=== PATIENT | female | born 1990 | race American Indian/Alaskan Native ===

== ENCOUNTER → 2018-12-08 | Outpatient (CLI) | payer OTHER ==
[2018-12-08 13:13] LABS: HEMATOCRIT 38.4 % (36.0-47.0); MEAN CORPUSCULAR HEMOGLOBIN 26.3 pg (27.0-33.0); MEAN CORPUSCULAR HGB CONC 31.3 g/dl (32.0-36.5); PLATELET COUNT, AUTOMATED 303 10^3/uL (150-450); RED BLOOD COUNT 4.57 10^6/uL (4.00-5.40); WHITE BLOOD COUNT 6.4 10^3/uL (4.0-10.0)
[2018-12-08 13:50] LABS: ALBUMIN 3.6 GM/DL (3.2-5.2); ALT/SGPT 20 U/L (12-78); BILIRUBIN,TOTAL 0.3 MG/DL (0.2-1.0); BLOOD UREA NITROGEN 7 MG/DL (7-18); CALCIUM LEVEL 8.7 MG/DL (8.5-10.1); CARBON DIOXIDE LEVEL 31 MEQ/L (21-32); CHLORIDE LEVEL 106 MEQ/L (98-107); CREATININE FOR GFR 0.76 MG/DL (0.55-1.30); GLOMERULAR FILTRATION RATE > 60.0 (>60); GLUCOSE, FASTING 75 MG/DL (70-100); HCG, SERUM QUANTITATIVE 2 MIU/ML; POTASSIUM SERUM 3.9 MEQ/L (3.5-5.1); SODIUM LEVEL 142 MEQ/L (136-145); TOTAL PROTEIN 6.3 GM/DL (6.4-8.2)
[2018-12-08 14:17] LABS: HEPATITIS B SURFACE ANTIGEN NEGATIVE (NEGATIVE)
[2018-12-08 14:40] LABS: CHLAMYDIA DNA AMPLIFICATION NEGATIVE (NEGATIVE); GC DNA AMPLIFICATION NEGATIVE (NEGATIVE)
--- NOTE | 2018-12-08 15:07 | ECGEPIP ---
[facility] Test Date: 2018-12-08 Pat Name: REYNALDO ADRIAN Department: Room: - Gender: Female [employer]: INDIRA : 1990 Requested By: Cosme Jorgensen Order Number: [id number] Reading MD: Zachariah Haley Measurements Intervals Howe Rate: 59 P: 63 RI: 129 QRS: 58 QRSD: 77 T: -10 QT: 418 QTc: 416 Interpretive Statements SINUS BRADYCARDIA MODERATE T-WAVE ABNORMALITY, CONSIDER ANTERIOR ISCHEMIA No prior ECG available for comparison at the time of interpretation. Electronically Signed on 12-08-2018 15:07:09 EDT by Zachariah Haley
[2018-12-08 16:47] LABS: HIV 1&2 SCREEN CENTAUR NEGATIVE (NEGATIVE)
== END ==
LOC: M LAB 12:23
PROVIDERS: ATTEND Family Medicine
DX: F11.20 Opioid dependence, uncomplicated (principal)

== ENCOUNTER → 2019-03-11 | Outpatient (REF) | payer OTHER, MEDICAID ==
[2019-03-11 19:31] LABS: BASO % 0.3 % (0.0-1.0); EOS # 0.1 10^3/uL (0.0-0.5); HEMATOCRIT 43.6 % (36.0-47.0); HEMOGLOBIN 13.3 g/dl (12.0-15.5); LYMPH # 2.7 10^3/uL (1.5-5.0); LYMPH % 29.6 % (24.0-44.0); MEAN CORPUSCULAR HEMOGLOBIN 26.1 pg (27.0-33.0); MEAN CORPUSCULAR HGB CONC 30.5 g/dl (32.0-36.5); MEAN CORPUSCULAR VOLUME 85.5 fl (80.0-96.0); MONO # 0.9 10^3/uL (0.0-0.8); MONO % 9.7 % (0.0-5.0); NEUTROPHILS # 5.4 10^3/uL (1.5-8.5); NEUTROPHILS % 59.2 % (36.0-66.0); PLATELET COUNT, AUTOMATED 262 10^3/uL (150-450); WHITE BLOOD COUNT 9.2 10^3/uL (4.0-10.0)
[2019-03-11 19:38] LABS: ALBUMIN 4.3 GM/DL (3.2-5.2); ALT/SGPT 17 U/L (12-78); BILIRUBIN,TOTAL 0.2 MG/DL (0.2-1.0); BLOOD UREA NITROGEN 13 MG/DL (7-18); CALCIUM LEVEL 8.7 MG/DL (8.5-10.1); CARBON DIOXIDE LEVEL 29 MEQ/L (21-32); CHLORIDE LEVEL 105 MEQ/L (98-107); CHOLESTEROL LEVEL 154 MG/DL (<200); CREATININE FOR GFR 0.79 MG/DL (0.55-1.30); FERRITIN 51 NG/ML (8-252); FREE T4 1.02 NG/DL (0.76-1.46); GLOMERULAR FILTRATION RATE > 60.0 (>60); GLUCOSE, FASTING 79 MG/DL (70-100); HDL CHOLESTEROL 70 MG/DL (>40); IRON (FE) 53 UG/DL (50-170); LDL CHOLESTEROL 74 MG/DL (<100); NON-HDL-C 84 MG/DL; PERCENT SATURATION 13.9 % (13.2-45.0); POTASSIUM SERUM 4.1 MEQ/L (3.5-5.1); SODIUM LEVEL 139 MEQ/L (136-145); THYROID STIMULATING HORMONE 0.768 uIU/ML (0.358-3.740); TOTAL 25(OH) VITAMIN D 20.8 NG/ML (30.0-100.0); TOTAL IRON BINDING CAPACITY 381 UG/DL (250-450); TOTAL PROTEIN 7.6 GM/DL (6.4-8.2); TRIGLYCERIDES LEVEL 49 MG/DL (<150)
[2019-03-11 19:39] LABS: VITAMIN B12 LEVEL 1112 PG/ML (247-911)
[2019-03-11 19:43] LABS: HEMOGLOBIN A1c 5.5 %
== END ==
LOC: M LAB REF 17:17
PROVIDERS: ATTEND Nurse Practitioner Family
DX: R61 Generalized hyperhidrosis (principal); R53.83 Other fatigue; R63.4 Abnormal weight loss; Z13.9 Encounter for screening, unspecified

== ENCOUNTER → 2019-08-24 | Outpatient (CLI) | payer OTHER | LOC: M LABSMTC 13:27 | PROVIDERS: ATTEND Pediatrics | DX: Z11.59 Encounter for screening for other viral diseases (principal) | CPT/HCPCS: C9803; U0003 ==

== ENCOUNTER 2019-09-19 09:50 | Inpatient (IN) | payer OTHER ==
[2019-09-19] MEDS ORDERED: ONDANSETRON 4 MG ORAL DISINTEGRATING TAB As Ordered ONE (11:13)
[2019-09-19] MEDS ORDERED: ONDANSETRON 4 MG ORAL DISINTEGRATING TAB ONE (11:13)
[2019-09-19] MEDS ORDERED: ACETAMINOPHEN TAB 650MG DOSE (2X325MG) ONE (22:42)
[2019-09-19] MEDS ORDERED: OLANZapine ORAL DISINTEGRATING TAB 5MG As Ordered ONE (22:42)
[2019-09-19] MEDS ORDERED: traZODone 50 MG TAB ONE (22:42)
[2019-09-19] MEDS ORDERED: traZODone 50 MG TAB As Ordered ONE (22:42)
[2019-09-19] MEDS ORDERED: ACETAMINOPHEN TAB 650MG DOSE (2X325MG) As Ordered ONE (22:42)
[2019-09-19] MEDS ORDERED: OLANZapine ORAL DISINTEGRATING TAB 5MG ONE (22:42)
[2019-09-20] MEDS ORDERED: FOLIC ACID 1 MG TAB ONE ×2 (07:22→11:37)
[2019-09-20] MEDS ORDERED: MULTIVITAMINS/MINERALS THERAP 1 TAB ONE ×2 (07:22→11:37)
[2019-09-20] MEDS ORDERED: THIAMINE 100 MG TAB ONE ×3 (07:22→21:24)
[2019-09-20] MEDS ORDERED: THIAMINE 100 MG TAB As Ordered ONE ×2 (07:22→11:37)
[2019-09-20] MEDS ORDERED: MULTIVITAMINS/MINERALS THERAP 1 TAB As Ordered ONE ×2 (07:22→11:37)
[2019-09-20] MEDS ORDERED: FOLIC ACID 1 MG TAB As Ordered ONE ×2 (07:23→11:37)
[2019-09-20] MEDS ORDERED: LORazepam 2 MG TAB As Ordered ONE (10:25)
[2019-09-20] MEDS ORDERED: LORazepam 2 MG TAB ONE (10:25)
[2019-09-20] MEDS ORDERED: ACETAMINOPHEN TAB 650MG DOSE (2X325MG) ONE (10:25)
[2019-09-20] MEDS ORDERED: ACETAMINOPHEN TAB 650MG DOSE (2X325MG) As Ordered ONE (10:26)
[2019-09-20] MEDS ORDERED: METHADONE 10 MG TAB (S0109) ONE (11:37)
[2019-09-20] MEDS ORDERED: METHADONE 10 MG TAB (S0109) As Ordered ONE (11:38)
[2019-09-20] MEDS ORDERED: traZODone 50 MG TAB ONE (21:24)
[2019-09-20] MEDS ORDERED: OLANZapine ORAL DISINTEGRATING TAB 5MG ONE (21:24)
[2019-09-21] MEDS ORDERED: MULTIVITAMINS/MINERALS THERAP 1 TAB ONE (08:34)
[2019-09-21] MEDS ORDERED: METHADONE 10 MG TAB (S0109) ONE (08:34)
[2019-09-21] MEDS ORDERED: FOLIC ACID 1 MG TAB ONE (08:34)
[2019-09-21] MEDS ORDERED: THIAMINE 100 MG TAB ONE (08:34)
[2019-09-21] MEDS ORDERED: MULTIVITAMINS/MINERALS THERAP 1 TAB As Ordered ONE (08:34)
[2019-09-21] MEDS ORDERED: THIAMINE 100 MG TAB As Ordered ONE (08:34)
[2019-09-21] MEDS ORDERED: FOLIC ACID 1 MG TAB As Ordered ONE (08:35)
[2019-09-21] MEDS ORDERED: METHADONE 10 MG TAB (S0109) As Ordered ONE (08:36)
[2019-11-05 17:17] LABS: BASO % 0.1 % (0.0-1.0); HEMATOCRIT 38.3 % (36.0-47.0); HEMOGLOBIN 12.1 g/dl (12.0-15.5); LYMPH # 3.3 10^3/uL (1.5-5.0); LYMPH % 48.1 % (24.0-44.0); MEAN CORPUSCULAR HEMOGLOBIN 26.1 pg (27.0-33.0); MEAN CORPUSCULAR HGB CONC 31.6 g/dl (32.0-36.5); MEAN CORPUSCULAR VOLUME 82.7 fl (80.0-96.0); MONO # 0.5 10^3/uL (0.0-0.8); MONO % 6.6 % (0.0-5.0); NEUTROPHILS # 3.1 10^3/uL (1.5-8.5); NEUTROPHILS % 44.9 % (36.0-66.0); PLATELET COUNT, AUTOMATED 213 10^3/uL (150-450); RED BLOOD COUNT 4.63 10^6/uL (4.00-5.40); WHITE BLOOD COUNT 6.8 10^3/uL (4.0-10.0)
[2019-12-08 18:16] LABS: ACETAMINOPHEN LEVEL < 2.0 UG/ML (10.0-30.0); ALBUMIN 4.1 GM/DL (3.2-5.2); ALT/SGPT 20 U/L (12-78); AMPHETAMINES LEVEL URINE POSITIVE (NEGATIVE); BARBITURATES URINE NEGATIVE (NEGATIVE); BENZODIAZEPINES URINE NEGATIVE (NEGATIVE); BILIRUBIN,TOTAL 0.1 MG/DL (0.2-1.0); BLOOD UREA NITROGEN 10 MG/DL (7-18); CANNABINOIDS URINE POSITIVE (NEGATIVE); CARBON DIOXIDE LEVEL 30 MEQ/L (21-32); CHLORIDE LEVEL 110 MEQ/L (98-107); COCAINE METABOLITE URINE POSITIVE (NEGATIVE); GLOMERULAR FILTRATION RATE > 60.0 (>60); GLUCOSE, FASTING 73 MG/DL (70-100); METHADONE URINE POSITIVE (NEGATIVE); OPIATES URINE NEGATIVE (NEGATIVE); PHENCYCLIDINE URINE NEGATIVE (NEGATIVE); POTASSIUM SERUM 4.2 MEQ/L (3.5-5.1); SALICYLATE LEVEL 1.9 MG/DL (5.0-30.0); SODIUM LEVEL 145 MEQ/L (136-145); TOTAL PROTEIN 6.9 GM/DL (6.4-8.2)
--- NOTE | 2019-12-10 20:41 | MHDSPDOC ---
[facility] Discharge Summary Discharge Summary DATE OF ADMISSION: Sep 19, 2019 at 21:00 DATE OF DISCHARGE: Sep 21, 2019 at 15:20 DISCHARGE DIAGNOSES: Unspecified depressive disorder CONSULTANTS INVOLVED:[ None (basic hospitalist screening)] REASON FOR ADMISSION & TREATMENT AND PROGRESS ON THE UNIT : Jessica presented today to the inpatient mental health unit after reportedly making suicidal statements. Collateral information revealed that she had some further statement earlier and been making it more commonly. She recently relapsed on multiple drugs. She was admitted to the inpatient unit and resumed on her home medications. She generally did well. She was a little over sedated on the first day of the visit. She was cooperative without any suicidal or homicidal ideation. After 48 hours, she did not meet extension criteria. She was discharged with no medication changes. She is to be sent back to [facility] with same medications as previous. DISCHARGE ASSESSMENT[improved] Legal status considerations: The patient at the time of discharge did not meet criteria for involuntary admission/extension due to having a [normal] mental status exam, [fair] insight into the situation, They are engaged in the discharge process, as well as being friendly and amenable in behavioral control and havent been engaging in any observed concerning behavior or ideation recently. They decline voluntary extension/admission at this time and must be discharged in good jose, as Im unable to make a case for holding the patient against their will. They may have historical risk factors of admissions and other interactions with psychiatry however, those are not modifiable from a clinical perspective. The patient will need to be discharged in good jose. MENTAL STATUS EXAMINATION ON DISCHARGE: [General: Well dressed with good hygiene Speech: Spontaneous and fluid Thought processes: Linear and logical Thought content: Future orientated Abstract reasoning, and computation: Intact Description of associations: Intact Description of abnormal or psychotic thoughts:Denies any suicidal or homicidal ideation. Denies any auditory or visual hallucinations. Does not appear to be responding to internal stimuli. Does not appear to be endorsing any bizarre or paranoid ideation. Judgment: fair Insight: fair Orientation: Alert and orientated 3 Recent and remote memory: Intact Attention span and concentration: Intact Fund of knowledge: Adequate Mood: "okay" Affect: Euthymic with a full range] PLAN/FOLLOWUP ARRANGEMENTS: Follow up appointments made (PCP and MH in 5 days of D/C date) and safety plan completed. Safety Planning aspects completed prior to discharge Offered addiction meds, patient refused [Family contact completed, educated on safe practices, instructed on removal and mitigation of dangerous means] [RN reviewed crisis hotline information and other aspects to empower patient to access care in interim before next appointment.] The amount of time spent in the coordination of care for this patient was approximately 30 minutes. MIRIAN CARTER DO Dec 10, 2019 20:41
== END 2019-09-21 15:20 | disposition home or self-care (01) | DRG 754 ==
LOC: M ED 09:50 → M PSY 21:00
PROVIDERS: ADMIT Psychiatry & Neurology Addiction Medicine; ATTEND Psychiatry & Neurology Addiction Medicine
DX: F32.9 Major depressive disorder, single episode, unspecified (principal); R45.851 Suicidal ideations

== ENCOUNTER 2020-08-04 15:07 | Emergency (ER) | payer OTHER ==
[2020-08-04] MEDS ORDERED: ISOVUE-370 76% 100ML VIAL As Ordered ONE (16:11)
[2020-08-04] MEDS ORDERED: BOOSTRIX/ADACEL VACCINE (DIPHTH/PERTUSS/ACELL/TETANUS) 0.5ML SYR IM ONE (16:55)
--- NOTE | 2020-08-04 17:00 | REP ---
INDICATION: trauma. COMPARISON: None. TECHNIQUE: Standard helical technique after the intravenous administration of 100 cc Isovue 370 FINDINGS: The liver, spleen, pancreas, adrenal glands, and kidneys are within normal limits. The abdominal aorta and para-aortic regions are within normal limits. The bowel loops and the mesenteries are within normal limits. There is no evidence of a mass or adenopathy. There is no free fluid or free air. Bone window technique throughout the exam shows shows right sided rib fractures probably 7th and 8th but incompletely imaged. IMPRESSION: 1. Right-sided rib fractures as described above. 2. No evidence of acute intra-abdominal or intrapelvic disease. <Electronically signed by Tae Franco > 08/04/20 0039
--- NOTE | 2020-08-04 17:01 | REP ---
INDICATION: trauma. COMPARISON: None. TECHNIQUE: Helical scanning is acquired. 5 mm axial images were reformatted. Coronal MPR images were generated. FINDINGS: Bone window settings demonstrate an intact bony calvarium. There is no evidence of skull fracture or incidental bony calvarial lesion. The visualized paranasal sinuses appear clear. No intraorbital abnormality is seen. On soft tissue window setting images; the lateral, third, and fourth ventricles are normal in size and position. Lo-white differentiation pattern is normal above and below the tentorium. There are is no evidence of intracranial hemorrhage. No mass, edema, infarction, or midline shift is seen. No extra-axial fluid collection is appreciated. There is a small area of scalp swelling in the left frontal region with a calcific density within the scalp soft tissues. No skull fracture is seen. Calcification versus is foreign body. Correlate clinically if skin is disrupted in this region. IMPRESSION: No skull fracture or intracranial injury seen. Focal scalp swelling with a small soft tissue density in the 6 swollen scalp in the left frontal region. Correlation with physical exam suggested. Foreign body versus dystrophic calcification.. <Electronically signed by Donta Neal > 08/04/20 [id number]
--- NOTE | 2020-08-04 17:04 | REP ---
INDICATION: trauma COMPARISON: None. TECHNIQUE: Standard helical technique after the intravenous administration of 100 cc Isovue 370 FINDINGS: There is a small amount of soft tissue density seen in the anterior junction line mildly splaying it and of consistent low density. There is no mediastinal or hilar adenopathy. There are no pleural or pericardial effusions. The right 6 and and possibly 7th ribs are fractured. There is superimposition of the osseous structure. Evaluation of the lung sparks shows an asymmetric density subjacent to the aforementioned rib fracture/fractures. The lung sparks are otherwise clear. IMPRESSION: 1. Rib fracture/fractures. 2. A small amount of parenchymal subsegmental atelectasis or parenchymal hemorrhage subjacent to the aforementioned ribs. <Electronically signed by Tae Franco > 08/04/20 [id number]
--- NOTE | 2020-08-04 17:06 | REP ---
INDICATION: trauma. COMPARISON: None. TECHNIQUE: Helical scanning is acquired and overlapping 2 mm high resolution axial images were generated and reviewed at bone and soft tissue window settings. Coronal and sagittal multiplanar re-formations images are generated. FINDINGS: There is no evidence of cervical spine element fracture. No skull base fracture is seen. Cervical vertebral body heights are preserved. Alignment is normal. Facet joints are normally aligned bilaterally at each cervical level on multiplanar re-formations images. There is no evidence of intraspinal or paraspinal hematoma. No extra vertebral abnormality is seen. IMPRESSION: Negative CT study of the cervical spine without contrast. No fracture seen. <Electronically signed by Donta Neal > 08/04/20 1028
[2020-08-04 18:15] VITALS: BP 94/54
[2020-08-04] MEDS ORDERED: BUSP1TAB PO (23:36)
[2020-08-04] MEDS ORDERED: METH5TA PO (23:36)
[2020-08-04] MEDS ORDERED: OLAN1TAB16 PO (23:36)
[2020-08-04] MEDS ORDERED: CLON-412 PO (23:36)
== END 2020-08-04 18:20 | disposition home or self-care (01) ==
LOC: M ED 15:07
DX: S00.03XA Contusion of scalp, initial encounter (principal); S22.41XA Multiple fractures of ribs, right side, initial encounter for closed fracture; V49.49XA Driver injured in collision with other motor vehicles in traffic accident, initial encounter; Y92.410 Unspecified street and highway as the place of occurrence of the external cause; F33.9 Major depressive disorder, recurrent, unspecified; Z79.899 Other long term (current) drug therapy; Z79.891 Long term (current) use of opiate analgesic; F17.210 Nicotine dependence, cigarettes, uncomplicated
CPT/HCPCS: 36415; 70450; 71260; 72125; 74177; 80047; 90471; 90715; 93041; 94010; 99285; Q9967

== ENCOUNTER 2020-08-04 23:21 | Emergency (ER) | payer OTHER ==
[~2020-08-04] VITALS: Ht 157.5 cm; Wt 49.5 kg
[2020-08-04] MEDS ORDERED: OLAN1TAB16 PO (23:36)
[2020-08-04] MEDS ORDERED: METH5TA PO (23:36)
[2020-08-04] MEDS ORDERED: CLON-412 PO (23:36)
[2020-08-04] MEDS ORDERED: BUSP1TAB PO (23:36)
[2020-08-05 00:36] LABS: HEMOGLOBIN 11.9 g/dl (12.0-15.5); MEAN CORPUSCULAR HEMOGLOBIN 26.5 pg (27.0-33.0); MEAN CORPUSCULAR HGB CONC 32.2 g/dl (32.0-36.5); MEAN CORPUSCULAR VOLUME 82.4 fl (80.0-96.0); PLATELET COUNT, AUTOMATED 179 10^3/uL (150-450); RED BLOOD COUNT 4.49 10^6/uL (4.00-5.40); WHITE BLOOD COUNT 6.5 10^3/uL (4.0-10.0)
[2020-08-05 01:07] LABS: HCG, SERUM QUALITATIVE NEGATIVE (NEGATIVE)
[2020-08-05 01:27] LABS: ALBUMIN 3.8 GM/DL (3.2-5.2); ALT/SGPT 18 U/L (12-78); BILIRUBIN,DIRECT 0.2 MG/DL (0.0-0.2); BILIRUBIN,TOTAL 0.4 MG/DL (0.2-1.0); BLOOD UREA NITROGEN 9 MG/DL (7-18); CALCIUM LEVEL 8.2 MG/DL (8.5-10.1); CARBON DIOXIDE LEVEL 29 MEQ/L (21-32); CHLORIDE LEVEL 109 MEQ/L (98-107); CREATININE FOR GFR 0.69 MG/DL (0.55-1.30); ETHYL ALCOHOL (ETHANOL) < 0.003 % (0.000-0.010); GLOMERULAR FILTRATION RATE > 60.0 (>60); GLUCOSE, FASTING 78 MG/DL (70-100); POTASSIUM SERUM 3.9 MEQ/L (3.5-5.1); SALICYLATE LEVEL 3.6 MG/DL (5.0-30.0); SODIUM LEVEL 141 MEQ/L (136-145); THYROID STIMULATING HORMONE 0.514 uIU/ML (0.358-3.740); TOTAL PROTEIN 6.3 GM/DL (6.4-8.2)
[2020-08-05 04:07] LABS: AMPHETAMINES LEVEL URINE NEGATIVE (NEGATIVE); BARBITURATES URINE NEGATIVE (NEGATIVE); BENZODIAZEPINES URINE POSITIVE (NEGATIVE); CANNABINOIDS URINE POSITIVE (NEGATIVE); COCAINE METABOLITE URINE POSITIVE (NEGATIVE); METHADONE URINE POSITIVE (NEGATIVE); OPIATES URINE NEGATIVE (NEGATIVE); PHENCYCLIDINE URINE NEGATIVE (NEGATIVE)
[2020-08-05] MEDS: NORCO, ANEXSIA 5/325MG TABLET (HYDROcodone/ACETAMINOPHEN) PO ONE (04:39)
[2020-08-05 06:19] VITALS: BP 115/78
== END 2020-08-05 06:20 | disposition home or self-care (01) ==
LOC: M ED 23:21
DX: Z04.1 Encounter for examination and observation following transport accident (principal); F43.0 Acute stress reaction; Z79.899 Other long term (current) drug therapy

== ENCOUNTER → 2021-10-05 | Outpatient (CLI) | payer OTHER ==
[~2021-10-05] MED LIST: BUSP1TAB PO; CLON-412 PO; METH5TA PO; OLAN1TAB16 PO
== END ==
LOC: M RAD 16:42
PROVIDERS: ATTEND Pediatrics
DX: Z87.81 Personal history of (healed) traumatic fracture (principal); S43.109D Unspecified dislocation of unspecified acromioclavicular joint, subsequent encounter

== ENCOUNTER → 2021-10-05 | Outpatient (CLI) | payer OTHER ==
[2021-10-05 18:19] LABS: HEMATOCRIT 35.1 % (36.0-47.0); HEMOGLOBIN 11.2 g/dl (12.0-15.5); MEAN CORPUSCULAR HGB CONC 31.9 g/dl (32.0-36.5); MEAN CORPUSCULAR VOLUME 78.3 fl (80.0-96.0); PLATELET COUNT, AUTOMATED 261 10^3/uL (150-450); RED BLOOD COUNT 4.48 10^6/uL (4.00-5.40); WHITE BLOOD COUNT 7.6 10^3/uL (4.0-10.0)
[2021-10-05 18:52] LABS: ALBUMIN 3.7 GM/DL (3.2-5.2); ALT/SGPT 31 U/L (12-78); BILIRUBIN,TOTAL 0.2 MG/DL (0.2-1.0); BLOOD UREA NITROGEN 10 MG/DL (7-18); CALCIUM LEVEL 8.6 MG/DL (8.5-10.1); CARBON DIOXIDE LEVEL 30 MEQ/L (21-32); CHLORIDE LEVEL 108 MEQ/L (98-107); CREATININE FOR GFR 0.69 MG/DL (0.55-1.30); GLOMERULAR FILTRATION RATE > 60.0 (>60); GLUCOSE, FASTING 97 MG/DL (70-100); POTASSIUM SERUM 3.5 MEQ/L (3.5-5.1); SODIUM LEVEL 141 MEQ/L (136-145); TOTAL PROTEIN 6.4 GM/DL (6.4-8.2)
[2021-10-05 19:33] LABS: HEPATITIS B SURFACE ANTIGEN NEGATIVE (NEGATIVE)
[2021-10-05 19:48] LABS: GC DNA AMPLIFICATION NEGATIVE (NEGATIVE)
[2021-10-05 20:01] LABS: HEPATITIS C VIRUS ABY INDEX 0.1 INDEX (<0.8); HIV 1&2 SCREEN CENTAUR NEGATIVE (NEGATIVE)
[2021-10-05 20:23] LABS: HCG, SERUM QUALITATIVE NEGATIVE (NEGATIVE)
== END ==
LOC: M LAB 16:40
PROVIDERS: ATTEND Family Medicine
DX: F11.20 Opioid dependence, uncomplicated (principal)

== ENCOUNTER 2021-10-23 10:21 | Emergency (ER) | payer OTHER ==
[~2021-10-23] VITALS: Ht 157.5 cm; Wt 74.5 kg
[2021-10-23 10:22] VITALS: BP 99/61
== END 2021-10-23 17:45 | disposition left against medical advice (07) ==
LOC: M ED 10:21
DX: Z53.21 Procedure and treatment not carried out due to patient leaving prior to being seen by health care provider (principal)

== ENCOUNTER → 2021-11-20 | Outpatient (CLI) | payer OTHER | LOC: M RAD 09:38 | PROVIDERS: ATTEND Pediatrics | DX: K76.0 Fatty (change of) liver, not elsewhere classified (principal) ==

== ENCOUNTER → 2021-12-14 | Outpatient (CLI) | payer OTHER ==
[~2021-12-14] MED LIST changes: +BUSP15TA47 PO; +CLON0.3T PO; +HYDR-3363 PO; +MELO15TA28 PO; +OLAN15TA13 PO; +OMEP40CA5 PO; +SERT50TA29 PO; +TRAZ1TAB14 PO; +ZOLO100T PO
== END ==
LOC: M LABSMTC 11:26
PROVIDERS: ATTEND Anesthesiology
DX: Z01.818 Encounter for other preprocedural examination (principal); Z11.52 Encounter for screening for COVID-19

== ENCOUNTER 2021-12-19 12:36 | Day surgery (SDC) | payer OTHER ==
[~2021-12-19] VITALS: Ht 157.5 cm; Wt 80.3 kg
[~2021-12-19 12:36] MED LIST changes: +NS 1,000 ML IV ONE
== END 2021-12-19 13:22 | disposition home or self-care (01) ==
LOC: M OPP 12:36
PROVIDERS: ATTEND Surgery
DX: R10.84 Generalized abdominal pain (principal); R13.10 Dysphagia, unspecified; K62.5 Hemorrhage of anus and rectum; Z53.8 Procedure and treatment not carried out for other reasons

== ENCOUNTER → 2022-01-31 | Outpatient (CLI) | payer OTHER ==
[~2022-01-31] MED LIST changes: -NS 1,000 ML IV ONE
== END ==
LOC: M LABSMTC 10:30
PROVIDERS: ATTEND Anesthesiology
DX: Z01.818 Encounter for other preprocedural examination (principal); Z20.822 Contact with and (suspected) exposure to COVID-19

== ENCOUNTER 2022-02-02 06:44 | Day surgery (SDC) | payer OTHER ==
[~2022-02-02] VITALS: Ht 157.5 cm; Wt 79.6 kg
[~2022-02-02 06:44] MED LIST changes: +NS 1,000 ML IV ONE
[2022-02-02 08:35] VITALS: BP 130/84
[2022-02-02] MEDS ORDERED: LIDOCAINE 2% 100MG/5ML SDV (FOR ANES.) As Ordered ONE (08:43)
[2022-02-02] MEDS ORDERED: propofoL 200 MG/20 ML VIAL As Ordered ONE (08:43)
[2022-02-02] MEDS ORDERED: fentaNYL 100 MCG/2 ML INJECTION As Ordered ONE (11:16)
== END 2022-02-02 08:40 | disposition home or self-care (01) ==
LOC: M OPP 06:44
PROVIDERS: ATTEND Surgery
DX: K64.1 Second degree hemorrhoids (principal); K62.5 Hemorrhage of anus and rectum; K44.9 Diaphragmatic hernia without obstruction or gangrene; K21.00 Gastro-esophageal reflux disease with esophagitis, without bleeding; K29.70 Gastritis, unspecified, without bleeding; R13.10 Dysphagia, unspecified; Z79.1 Long term (current) use of non-steroidal anti-inflammatories (NSAID); Z79.891 Long term (current) use of opiate analgesic; Z79.899 Other long term (current) drug therapy; Z99.89 Dependence on other enabling machines and devices; G47.33 Obstructive sleep apnea (adult) (pediatric); F32.9 Major depressive disorder, single episode, unspecified; F41.9 Anxiety disorder, unspecified; F43.10 Post-traumatic stress disorder, unspecified
CPT/HCPCS: 43239; 45378; 88305; J3010